=== PATIENT | female | born 1965 | race American Indian/Alaskan Native ===

== ENCOUNTER 2018-01-06 01:19 | Emergency (ER) | payer MEDICARE ==
[2018-01-06 03:01] LABS: Hematocrit 38.8 % (30.3-42.9); Hemoglobin 13.1 gm/dl (10.1-14.3); Mean Corpuscular HGB Conc 34 % (30-34); Mean Corpuscular Hemoglobin 30 pg (28-32); Mean Corpuscular Volume 89 fl (79-97); Platelet Count 211 K/mm3 (140-440); Red Blood Count 4.37 M/mm3 (3.65-5.03); Red Cell Distribution Width 13.9 % (13.2-15.2)
[2018-01-06 04:05] LABS: BUN/Creatinine Ratio 15; Blood Urea Nitrogen 9 mg/dL (7-17); Calcium 8.5 mg/dL (8.4-10.2); Hemolysis Index 30
[2018-01-06] MEDS ORDERED: KEPPRA 1,000 MG/NS 0.75% 100ML 1,000 MG/100 ML BAG IV ONE ×2 (08:01→08:32)
[2018-01-06] MEDS ORDERED: SUBLIMAZE IV ONE (08:03)
[2018-01-06] MEDS ORDERED: ATIVAN IV ONE (08:03)
[2018-01-06] MEDS ORDERED: ZOFRAN IV ONE (08:03)
--- NOTE | 2018-01-06 08:10 | Emergency Department Report ---
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 She has since been on calcium replacement. She was seen at this facility 3 years ago for a seizure. At that point they loaded keppra she was also follow up with neurology and never did. She says she did have a negative EEG at [facility] 7 years ago and they felt the seizure that she had at that time was calcium related. She has been taking calcium replacement. states she had 2 witnessed tonic-clonic seizures last night. She is now awake alert oriented 3 without complaints except muscle aches from the jerking spell. She is having no trauma complaints. She is having no focal neural complaints. She is awake alert oriented 3 Anna Coma Scale is 15 with a nonfocal neuro exam. Calcium and the serum is normal, denies drug or alcohol use, no fever, headache no stiff neck no abd complaints -: Gradual, Last night Description of Episode: loss of consciousness, tonic-clonic movement Witnessed:: Yes Trauma: No Seizure History: known seizure disorder, compliant with medication Associated Symptoms: denies other symptoms. denies: confusion, cough, diaphoresis, fever/chills, loss of appetite, malaise, rash, shortness of breath , syncope, weakness, tongue injury, shoulder dislocation - Related Data Home Medications Medication Instructions Recorded Confirmed Last Taken Gabapentin [Neurontin] 900 mg PO Q8H PRN 09/09/14 09/09/14 Unknown Morphine ER [Ms Contin ER] 30 mg PO Q6HR PRN 09/09/14 09/09/14 Unknown Previous Rx's Medication Instructions Recorded Last Taken Type levETIRAcetam [Keppra TAB] 500 mg PO BID #60 tablet 01/06/18 Unknown Rx Allergies Allergy/AdvReac Type Severity Reaction Status Date / Time Iodinated Contrast- Oral and Allergy Unknown Verified 09/09/14 00:06 IV Dye [Iodinated Contrast Media - IV Dye] latex Allergy Unknown Verified 09/09/14 00:06 Penicillins Allergy Unknown Verified 09/09/14 00:06 shellfish derived Allergy Unknown Verified 09/09/14 00:06 ED Review of Systems ROS: Stated complaint: AMS Other details as noted in HPI Comment: All other systems reviewed and negative Constitutional: denies: diaphoresis, fever, malaise Eyes: denies: eye discharge, vision change ENT: denies: dental pain, hearing loss, epistaxis Respiratory: denies: shortness of breath, SOB with exertion, SOB at rest, stridor Cardiovascular: denies: chest pain, palpitations, dyspnea on exertion, orthopnea , edema, syncope Gastrointestinal: denies: abdominal pain, nausea, vomiting, diarrhea, constipation, hematemesis, melena Genitourinary: denies: urgency, dysuria Skin: denies: rash, lesions Neurological: denies: headache, weakness, numbness, paresthesias, confusion, abnormal gait, vertigo Hematological/Lymphatic: denies: easy bruising, swollen glands ED Past Medical Hx - Past Medical History Previous Medical History?: Yes Hx Seizures: Yes (from hypocalcemia) Additional medical history: Chronic pain syndrome - Surgical History Past Surgical History?: Yes Additional Surgical History: gastric bypass, 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 - Social History Smoking Status: Former Smoker Substance Use Type: None - Medications Home Medications: Home Medications Medication Instructions Recorded Confirmed Last Taken Type Gabapentin [Neurontin] 900 mg PO Q8H PRN 09/09/14 09/09/14 Unknown History Morphine ER [Ms Contin ER] 30 mg PO Q6HR PRN 09/09/14 09/09/14 Unknown History levETIRAcetam [Keppra TAB] 500 mg PO BID #60 tablet 01/06/18 Unknown Rx ED Physical Exam - General Limitations: No Limitations General appearance: alert, in no apparent distress, anxious - Head Head exam: Present: atraumatic, normocephalic - Eye Eye exam: Present: PERRL, EOMI - ENT ENT exam: Present: normal exam, normal orophraynx - Neck Neck exam: Present: normal inspection. Absent: tenderness, meningismus - Respiratory Respiratory exam: Present: normal lung sounds bilaterally. Absent: respiratory distress, wheezes, rales, rhonchi, stridor, chest wall tenderness, accessory muscle use, decreased breath sounds, prolonged expiratory - Cardiovascular Cardiovascular Exam: Present: regular rate, normal rhythm, normal heart sounds. Absent: bradycardia, tachycardia, irregular rhythm - GI/Abdominal GI/Abdominal exam: Present: soft. Absent: distended, tenderness, guarding, rebound, rigid, mass, pulsatile mass - Extremities Exam Extremities exam: Present: normal inspection, normal capillary refill. Absent: pedal edema, joint swelling, calf tenderness - Back Exam Back exam: Present: normal inspection. Absent: CVA tenderness (L), muscle spasm , paraspinal tenderness, vertebral tenderness - Neurological Exam Neurological exam: Present: alert, oriented X3, CN II-XII intact. Absent: motor sensory deficit - Psychiatric Psychiatric exam: Present: normal affect ED Course Vital Signs 01/06/18 01/06/18 01/06/18 02:30 06:51 06:57 Temperature 98.2 F 98.4 F Pulse Rate 77 71 Respiratory 16 15 16 Rate Blood Pressure 124/90 Blood Pressure 166/95 [Right] O2 Sat by Pulse 100 99 99 Oximetry ED Medical Decision Making - Lab Data Result diagrams: 01/06/18 02:52 01/06/18 02:52 - Medical Decision Making Patient family refuses any imaging at this time. Patient had no trauma. We will go ahead and treat her headache with some fentanyl she is also somewhat anxious and was given some Ativan. Blood pressure was improved. She will be restarted on Keppra. She will need follow-up with neurology. The calcium level was normal. She has no signs of trauma she had possibly 2 witnessed tonic -clonic seizures but is stable for outpatient follow-up seizure precautions were given and the importance of neurology follow-up was stressed Critical care attestation.: If time is entered above; I have spent that time in minutes in the direct care of this critically ill patient, excluding procedure time. ED Disposition Clinical Impression: Seizure disorder Disposition: DC-01 TO HOME OR SELFCARE Is pt being admited?: No Condition: Stable Instructions: Recurrent Seizures Adult (ED) Additional Instructions: Return immediately or call 911 if new alarming symptoms see a neurologist or your regular doctor in 3-5 days or the doctor listed Prescriptions: levETIRAcetam [Keppra TAB] 500 mg PO BID #60 tablet Referrals: IRMA ST MD [Staff Physician] - 3-5 Days Time of Disposition: 08:27
[2018-01-06] MEDS ORDERED: ZOFRAN ONE (08:31)
[2018-01-06] MEDS ORDERED: ATIVAN ONE (08:31)
[2018-01-06] MEDS ORDERED: SUBLIMAZE ONE (08:32)
[2018-01-06 10:14] VITALS: BP 148/76
== END 2018-01-06 10:05 | disposition home or self-care (01) ==
LOC: ED 01:19
DX: T79.A0XA Compartment syndrome, unspecified, initial encounter (principal); Z87.891 Personal history of nicotine dependence; Z88.0 Allergy status to penicillin; Z91.013 Allergy to seafood; Z91.040 Latex allergy status
CPT/HCPCS: 36415; 80048; 85027; 96365; 96375; 99284; J1953; J2060; J2405; J3010